=== PATIENT | male | born 1955 | race Caucasian/White ===

== ENCOUNTER 2017-08-08 19:21 | Emergency (ER) | payer OTHER ==
--- NOTE | 2017-08-08 20:26 | EDPHY ---
H & P Stated Complaint: burning pain in L foot since last night Time Seen by Provider: 08/08/17 19:37 HPI/ROS: CHIEF COMPLAINT: Atraumatic left foot pain HISTORY OF PRESENT ILLNESS: The patient presents to the ED with a 1 day history of atraumatic left foot pain. The patient denies prior history of arthritis. He does have a history of surgically treated renal cancer. The patient has a history of hypertension. The patient denies history of gout. The patient denies history of overuse. He complains of a sharp pain over his left 5th metatarsal base. Patient denies additional acute complaints. REVIEW OF SYSTEMS: A comprehensive 10 point review of systems is otherwise negative aside from elements mentioned in the history of present illness. Source: Patient - Personal History Current Tetanus/Diphtheria Vaccine: Unsure - Medical/Surgical History Hx Asthma: No Hx Chronic Respiratory Disease: No Hx Diabetes: No Hx Cardiac Disease: No Hx Renal Disease: Yes Hx Cirrhosis: No Hx Alcoholism: No Hx HIV/AIDS: No Hx Splenectomy or Spleen Trauma: No Other PMH: one kidney, back sx, gallbladder removed, appy, HTN - Social History Smoking Status: Former smoker - Physical Exam Exam: General Appearance: Alert, no distress Neurological: Sensation and motor function intact to the left lower extremity Skin: Warm and dry, no rashes, no cellulitic changes Musculoskeletal: Focal area of tenderness over the left 5th metatarsal base. Extremities: symmetrical, full range of motion Constitutional: Initial Vital Signs Temperature (C) 36.6 C 08/08/17 19:23 Heart Rate 69 08/08/17 19:23 Respiratory Rate 18 08/08/17 19:23 Blood Pressure 184/103 H 08/08/17 19:23 O2 Sat (%) 95 08/08/17 19:23 Allergies/Adverse Reactions: No Known Allergies Allergy (Verified 08/08/17 19:27) Home Medications: Medication Instructions Recorded Aspirin [Aspirin 81mg (*)] 81 mg PO DAILY 07/24/14 Bisoprol/Hydrochlorothiazide 1 each PO BID 07/24/14 [Bisoprolol-Hctz 10-6.25 mg Tab] Medical Decision Making - Diagnostics Imaging Results: Left foot x-ray: Images reviewed by myself, negative for fracture obvious osseous abnormality at the 5th metatarsal base ED Course/Re-evaluation: The patient presents the ED with atraumatic foot pain. There is no obvious fracture noted on his x-ray today by my interpretation. The patient will be advised to use Tylenol for pain management. The patient will should follow up with our on-call chefs for any ongoing symptoms. He is advised to return to the ED for markedly worsening symptoms or other concerns. Departure - Departure Disposition: Home, Routine, Self-Care Clinical Impression: Left foot pain Condition: Good Instructions: Musculoskeletal Pain (ED) Additional Instructions: 1. Please use 650 mg of Tylenol every 6 hours for pain. 2. Please ice area of tenderness and swelling 20-30 minutes at a time 4 to 5 times a day over the next 2 days. 3. Please follow up with the chefs you have been referred to for any unimproved symptoms 4. Return to the ED immediately for increasing redness, fever or swelling as this may be the sign of a developing infection Referrals: JUSTO KWAN [Other] - As per Instructions Keshawn Bradley DPM [Doctor of Podiatric Medicine] - As per Instructions
[2017-08-08 20:58] VITALS: BP 164/102; PULSE 62; RESP 17; TEMP 98.4; O2SAT 93
== END 2017-08-08 20:57 | disposition home or self-care (01) ==
DX: M79.672 Pain in left foot (principal); I10 Essential (primary) hypertension; Z79.82 Long term (current) use of aspirin; Z85.528 Personal history of other malignant neoplasm of kidney; Z87.891 Personal history of nicotine dependence

== ENCOUNTER → 2019-02-28 | Outpatient (CLI) | payer OTHER | LOC: FIMAGING 14:17 ==